=== PATIENT | male | born 1950 | race Caucasian/White ===

== ENCOUNTER → 2016-07-23 | Outpatient (CLI) | payer BC ==
[~2016-07-23] MED LIST: BAYER CHEWABLE81 MG PO; FORTAMET1000 MG; LISINOPRIL2.5 MG PO; SIMVASTATIN80 MG PO
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
== END | disposition home or self-care (01) ==
LOC: SCT 15:04
DX: J81.1 Chronic pulmonary edema (principal); R91.1 Solitary pulmonary nodule; K76.0 Fatty (change of) liver, not elsewhere classified; Z87.81 Personal history of (healed) traumatic fracture; Z90.81 Acquired absence of spleen
CPT/HCPCS: 71250

== ENCOUNTER → 2016-09-12 | Day surgery (SDC) | payer BC ==
--- NOTE | ~2016-09-12 | OR ---
Unit #: [id number] #: [id number] Patient: BERT PETERSEN [id number] [address] [address] [id number] O MR#: [id number] NAME: BERT PETERSEN. ROOM: Date of Procedure: 09/12/2016 Admission Date: 09/12/2016 Surgeon: Tien Carlos M.D. : 1950 Attending Physician: Tien Carlos M.D. Primary Care Physician: Jaison Canseco M.D. OPERATIVE REPORT PREOPERATIVE DIAGNOSIS Screening colonoscopy. POSTOPERATIVE DIAGNOSIS Screening colonoscopy. PROCEDURE PERFORMED 1. Colonoscopy to cecum. 2. Polypectomy at 100 cm (splenic flexure) with electrocautery snare. 3. Polypectomy at 40 cm with electrocautery snare. ANESTHESIA Monitored anesthesia care. FINDINGS The patient was found to have extensive sigmoid diverticulosis. The patient was found to have a 4 to 5 mm polyp excised at 100 cm with electrocautery snare with good hemostasis. A polyp was excised at 40 cm with electrocautery snare with good hemostasis. It was approximately 1 cm in size. SPECIMEN Sent to pathology. COMPLICATIONS None apparent. CONDITION The patient tolerated the procedure well. INDICATIONS FOR PROCEDURE The patient is a 66-year-old white male, who presents at this time for screening colonoscopy. His last colonoscopy was in 2005. DESCRIPTION OF PROCEDURE After obtaining informed consent, the patient was brought to the endoscopy suite and after adequate monitored anesthesia care, had the colonoscope placed through the anus and advanced to the level of the cecum without difficulty with the lumen always in view. The cecum was normal as was the ileocecal valve. The ascending colon was normal as was the hepatic flexure. The transverse colon was normal. In the area of the splenic flexure, there was a 4 to 5 mm polyp present that was excised completely Unit #: [id number] #: [id number] Patient: BERT PETERSEN with electrocautery snare with good hemostasis, retrieved with a mucus trap, and sent to pathology. The descending colon was normal. The sigmoid colon had extensive sigmoid diverticulosis. At 40 cm, a 1 cm polyp on a stalk was found. It was excised completely with electrocautery snare, retrieved with a mucus trap, and sent to pathology. The remaining portion the sigmoid colon, rectosigmoid, and rectum were all within normal limits. On retroflexing in the rectum to the anorectal junction, there was no abnormality seen. The scope was removed without difficulty. On digital examination, there was good sphincter tone. No palpable masses. The patient tolerated the procedure well and went from the endoscopy suite to the recovery area in stable condition. RECOMMENDATIONS Diverticular sheet given. High-fiber diet, lots of liquids, tucks or wipes p.r.n. Call Friday for pathology. Repeat colonoscopy in 5 years. Dictated by... Tien Carlos M.D. EUSEBIO/nathalia TD: 09/13/2016 05:59 JOB #: [id number] CC: [facility] OPERATIVE REPORT Page 1 of 1 X Tien Carlos MD X PROCEDURE OPERATIVE NOTE
== END | disposition home or self-care (01) ==
LOC: COPS 09:39
DX: Z12.11 Encounter for screening for malignant neoplasm of colon (principal); D12.5 Benign neoplasm of sigmoid colon; D12.3 Benign neoplasm of transverse colon; K57.30 Diverticulosis of large intestine without perforation or abscess without bleeding; I10 Essential (primary) hypertension; E11.9 Type 2 diabetes mellitus without complications; K21.9 Gastro-esophageal reflux disease without esophagitis; E78.5 Hyperlipidemia, unspecified; Z79.82 Long term (current) use of aspirin; Z79.899 Other long term (current) drug therapy; Z90.81 Acquired absence of spleen
CPT/HCPCS: 82947; 88305; J2250